=== PATIENT | male | born 1960 | race Caucasian/White ===

== ENCOUNTER 2018-03-08 10:49 | Outpatient (CLI) | payer OTHER ==
[2018-03-08 17:40] LABS: BASOPHILS # (AUTO) 0.1 10^3/uL (0.0-0.1); BASOPHILS % (AUTO) 1.4 %; EOSINOPHILS # (AUTO) 0.4 10^3/uL (0.0-0.7); HGB - HEMOGLOBIN 15.9 g/dL (14.0-18.0); LYMPHOCYTES # (AUTO) 1.2 10^3/uL (1.5-3.5); LYMPHOCYTES % (AUTO) 15.3 %; MEAN CORPUSCULAR HEMOGLOBIN 30.1 pg (27.0-31.0); MEAN CORPUSCULAR HGB CONC 33.6 g/dL (32.0-36.0); MEAN CORPUSCULAR VOLUME 89.5 fL (80.0-94.0); MONOCYTES # (AUTO) 0.6 10^3/uL (0.0-1.0); MONOCYTES % (AUTO) 7.1 %; NEUTROPHILS # (AUTO) 5.6 10^3/uL (1.5-6.6); NEUTROPHILS % (AUTO) 71.2 %; PLT - PLATELET COUNT 220 10^3/uL (130-450); RED BLOOD COUNT 5.28 10^6/uL (4.70-6.10); RED CELL DISTRIBUTION WIDTH 13.2 % (12.0-15.0); WHITE BLOOD COUNT 7.9 x10^3/uL (4.8-10.8)
[2018-03-08 17:42] LABS: ALBUMIN 4.1 g/dL (3.2-5.5); ALBUMIN/GLOBULIN RATIO 1.3 (1.0-2.2); ALKALINE PHOSPHATASE 71 IU/L (42-121); ALT ALANINE AMINOTRANSFERASE 32 IU/L (10-60); AST ASPARTATE AMINOTRANSFERASE 25 IU/L (10-42); BILIRUBIN,TOTAL 0.6 mg/dL (0.2-1.0); BUN - BLOOD UREA NITROGEN 23 mg/dL (6-20); CALCIUM 9.1 mg/dL (8.5-10.3); CARBON DIOXIDE - CO2 26 mmol/L (21-32); CHLORIDE 107 mmol/L (101-111); CHOLESTEROL 223 mg/dL; GFR - MDRD 77 (>89); GLUCOSE 104 mg/dL (70-100); HDL CHOLESTEROL 37 mg/dL; LDL CHOLESTEROL,CALCULATED 137 mg/dL; LDL/HDL RATIO 3.7 (<3.6); SODIUM 139 mmol/L (135-145); TOTAL PROTEIN 7.3 g/dL (6.7-8.2); VLDL CHOLESTEROL 49 mg/dL
[2018-03-11 15:21] LABS: HIV AG/AB 4TH GEN NON-REACTIVE (NON-REACTIVE)
[2018-03-12 17:26] LABS: HEPATITIS C ANTIBODY NON-REACTIVE (NON-REACTIVE)
== END 2018-03-08 10:50 | disposition home or self-care (01) ==
LOC: LAB.F 10:49
PROVIDERS: ATTEND Internal Medicine
DX: Z00.00 Encounter for general adult medical examination without abnormal findings (principal); Z11.59 Encounter for screening for other viral diseases; I10 Essential (primary) hypertension; Z11.4 Encounter for screening for human immunodeficiency virus [HIV]
CPT/HCPCS: 36415; 80053; 80061; 83721; 84443; 85025; 86803; 87389

== ENCOUNTER 2019-07-18 09:02 | Outpatient (CLI) | payer OTHER ==
[2019-07-18 18:57] LABS: BASOPHILS # (AUTO) 0.1 10^3/uL (0.0-0.1); BASOPHILS % (AUTO) 1.9 %; EOSINOPHILS # (AUTO) 0.5 10^3/uL (0.0-0.7); EOSINOPHILS % (AUTO) 7.7 %; HGB - HEMOGLOBIN 15.2 g/dL (14.0-18.0); LYMPHOCYTES # (AUTO) 1.4 10^3/uL (1.5-3.5); LYMPHOCYTES % (AUTO) 23.6 %; MEAN CORPUSCULAR HEMOGLOBIN 29.8 pg (27.0-31.0); MEAN CORPUSCULAR HGB CONC 33.1 g/dL (32.0-36.0); MEAN PLATELET VOLUME 10.7 fL (7.4-11.4); MONOCYTES # (AUTO) 0.5 10^3/uL (0.0-1.0); MONOCYTES % (AUTO) 7.7 %; NEUTROPHILS # (AUTO) 3.4 10^3/uL (1.5-6.6); NEUTROPHILS % (AUTO) 58.8 %; PLT - PLATELET COUNT 266 10^3/uL (130-450); RED CELL DISTRIBUTION WIDTH 12.6 % (12.0-15.0); WHITE BLOOD COUNT 5.9 x10^3/uL (4.8-10.8)
[2019-07-18 19:42] LABS: ALBUMIN/GLOBULIN RATIO 1.3 (1.0-2.2); ALKALINE PHOSPHATASE 69 IU/L (42-121); ALT ALANINE AMINOTRANSFERASE 33 IU/L (10-60); AST ASPARTATE AMINOTRANSFERASE 28 IU/L (10-42); BILIRUBIN,TOTAL 0.6 mg/dL (0.2-1.0); BUN - BLOOD UREA NITROGEN 23 mg/dL (6-20); CALCIUM 8.7 mg/dL (8.5-10.3); CARBON DIOXIDE - CO2 25 mmol/L (21-32); CHLORIDE 110 mmol/L (101-111); CHOL/HDL RATIO 6.5 (<5.0); CHOLESTEROL 229 mg/dL; CREATININE 1.2 mg/dL (0.6-1.2); GFR - MDRD 62 (>89); GLUCOSE 99 mg/dL (70-100); HDL CHOLESTEROL 35 mg/dL; LDL CHOLESTEROL,CALCULATED 167 mg/dL; LDL/HDL RATIO 4.8 (<3.6); SODIUM 140 mmol/L (135-145); TOTAL PROTEIN 7.1 g/dL (6.7-8.2); VLDL CHOLESTEROL 27 mg/dL
== END 2019-07-18 09:03 | disposition home or self-care (01) ==
LOC: LAB.S 09:02
PROVIDERS: ATTEND Physician Assistant Medical
DX: I10 Essential (primary) hypertension (principal); E78.5 Hyperlipidemia, unspecified
CPT/HCPCS: 36415; 80053; 80061; 83721; 85025

== ENCOUNTER 2021-02-25 07:02 | Outpatient (CLI) | payer OTHER ==
[2021-02-25 14:44] LABS: BASOPHILS # (AUTO) 0.1 10^3/uL (0.0-0.1); BASOPHILS % (AUTO) 1.4 %; EOSINOPHILS # (AUTO) 0.5 10^3/uL (0.0-0.7); EOSINOPHILS % (AUTO) 5.9 %; HCT - HEMATOCRIT 47.5 % (42.0-52.0); HGB - HEMOGLOBIN 15.6 g/dL (14.0-18.0); LYMPHOCYTES # (AUTO) 1.8 10^3/uL (1.5-3.5); LYMPHOCYTES % (AUTO) 22.1 %; MEAN CORPUSCULAR HEMOGLOBIN 29.5 pg (27.0-31.0); MEAN CORPUSCULAR HGB CONC 32.8 g/dL (32.0-36.0); MEAN PLATELET VOLUME 10.5 fL (7.4-11.4); MONOCYTES # (AUTO) 0.7 10^3/uL (0.0-1.0); MONOCYTES % (AUTO) 8.8 %; NEUTROPHILS # (AUTO) 4.9 10^3/uL (1.5-6.6); NEUTROPHILS % (AUTO) 61.5 %; PLT - PLATELET COUNT 269 10^3/uL (130-450); RED BLOOD COUNT 5.28 10^6/uL (4.70-6.10); RED CELL DISTRIBUTION WIDTH 12.6 % (12.0-15.0)
[2021-02-25 15:17] LABS: ALBUMIN 4.2 g/dL (3.2-5.5); ALBUMIN/GLOBULIN RATIO 1.4 (1.0-2.2); ALKALINE PHOSPHATASE 68 IU/L (42-121); ALT ALANINE AMINOTRANSFERASE 37 IU/L (10-60); AST ASPARTATE AMINOTRANSFERASE 26 IU/L (10-42); BILIRUBIN,TOTAL 0.7 mg/dL (0.2-1.0); BUN - BLOOD UREA NITROGEN 21 mg/dL (6-20); CALCIUM 9.1 mg/dL (8.5-10.3); CARBON DIOXIDE - CO2 23 mmol/L (21-32); CHLORIDE 107 mmol/L (101-111); CHOLESTEROL 161 mg/dL; CREATININE 1.3 mg/dL (0.6-1.2); GFR - MDRD 56 (>89); GLUCOSE 102 mg/dL (70-100); HDL CHOLESTEROL 32 mg/dL; LDL CHOLESTEROL,CALCULATED 80 mg/dL; LDL/HDL RATIO 2.5 (<3.6); POTASSIUM 4.2 mmol/L (3.5-5.0); SODIUM 141 mmol/L (135-145); TOTAL PROTEIN 7.1 g/dL (6.7-8.2); TRIGLYCERIDES 243 mg/dL; VLDL CHOLESTEROL 49 mg/dL
[2021-02-25 15:29] LABS: THYROID STIMULATING HORMONE 1.03 uIU/mL (0.34-5.60)
== END 2021-02-25 07:03 | disposition home or self-care (01) ==
LOC: LAB.S 07:02
PROVIDERS: ATTEND Physician Assistant
DX: I10 Essential (primary) hypertension (principal); R00.2 Palpitations; Z82.49 Family history of ischemic heart disease and other diseases of the circulatory system; J30.2 Other seasonal allergic rhinitis; E78.5 Hyperlipidemia, unspecified; D86.9 Sarcoidosis, unspecified
CPT/HCPCS: 36415; 80053; 80061; 83721; 84153; 84443; 85025

== ENCOUNTER 2022-12-01 08:07 | Outpatient (CLI) | payer OTHER ==
[2022-12-01 14:40] LABS: BASOPHILS # (AUTO) 0.1 10^3/uL (0.0-0.1); BASOPHILS % (AUTO) 1.7 %; EOSINOPHILS # (AUTO) 0.5 10^3/uL (0.0-0.7); EOSINOPHILS % (AUTO) 8.4 %; HCT - HEMATOCRIT 49.6 % (42.0-52.0); HGB - HEMOGLOBIN 15.7 g/dL (14.0-18.0); LYMPHOCYTES # (AUTO) 1.7 10^3/uL (1.5-3.5); LYMPHOCYTES % (AUTO) 28.3 %; MEAN CORPUSCULAR HEMOGLOBIN 29.1 pg (27.0-31.0); MEAN CORPUSCULAR HGB CONC 31.7 g/dL (32.0-36.0); MEAN CORPUSCULAR VOLUME 91.9 fL (80.0-94.0); MEAN PLATELET VOLUME 10.1 fL (7.4-11.4); MONOCYTES # (AUTO) 0.6 10^3/uL (0.0-1.0); MONOCYTES % (AUTO) 9.6 %; NEUTROPHILS # (AUTO) 3.1 10^3/uL (1.5-6.6); NEUTROPHILS % (AUTO) 51.7 %; PLT - PLATELET COUNT 260 10^3/uL (130-450); WHITE BLOOD COUNT 5.9 x10^3/uL (4.8-10.8)
[2022-12-01 15:37] LABS: ALBUMIN 3.9 g/dL (3.2-5.5); ALBUMIN/GLOBULIN RATIO 1.2 (1.0-2.2); ALKALINE PHOSPHATASE 54 IU/L (42-121); ALT ALANINE AMINOTRANSFERASE 29 IU/L (10-60); AST ASPARTATE AMINOTRANSFERASE 25 IU/L (10-42); BILIRUBIN,TOTAL 0.6 mg/dL (0.2-1.0); BUN - BLOOD UREA NITROGEN 29 mg/dL (6-20); CALCIUM 8.9 mg/dL (8.5-10.3); CARBON DIOXIDE - CO2 27 mmol/L (21-32); CHLORIDE 106 mmol/L (101-111); CHOL/HDL RATIO 7.9 (<5.0); CHOLESTEROL 260 mg/dL; CREATININE 1.5 mg/dL (0.6-1.2); GFR - MDRD 47 (>89); GLUCOSE 103 mg/dL (70-100); HDL CHOLESTEROL 33 mg/dL; LDL CHOLESTEROL,CALCULATED 181 mg/dL; LDL/HDL RATIO 5.5 (<3.6); POTASSIUM 4.3 mmol/L (3.5-5.0); SODIUM 138 mmol/L (135-145); TOTAL PROTEIN 7.2 g/dL (6.7-8.2); TRIGLYCERIDES 228 mg/dL; VLDL CHOLESTEROL 46 mg/dL
[2022-12-02 12:29] LABS: ESTIMATED AVERAGE GLUCOSE 120 mg/dL (70-100); HEMOGLOBIN A1c% 5.8 % (4.27-6.07)
[2022-12-12 22:07] LABS: 1,25-DIHYDROXY VITAMIN D-2 <10 pg/mL (.); 1,25-DIHYDROXY VITAMIN D-3 31 pg/mL (.); TOTAL 1,25-DIHYDROXYVITAMIN D 31 pg/mL (.)
== END 2022-12-01 08:08 | disposition home or self-care (01) ==
LOC: LAB.S 08:07
PROVIDERS: ATTEND Nurse Practitioner Acute Care
DX: D86.9 Sarcoidosis, unspecified (principal); Z13.228 Encounter for screening for other metabolic disorders; Z13.1 Encounter for screening for diabetes mellitus; Z13.29 Encounter for screening for other suspected endocrine disorder; Z13.0 Encounter for screening for diseases of the blood and blood-forming organs and certain disorders involving the immune mechanism
CPT/HCPCS: 36415; 80053; 80061; 82306; 82652; 83036; 83721; 84443; 85025

== ENCOUNTER 2022-12-18 10:27 | Outpatient (CLI) | payer OTHER ==
--- NOTE | 2022-12-18 11:14 | XRAY Report ---
PROCEDURE: Foot 3 View LT INDICATIONS: LEFT HEEL PAIN TECHNIQUE: 3 views of the foot were acquired. COMPARISON: None. FINDINGS: Bones: No fractures or dislocations. No suspicious bony lesions. Retrocalcaneal enthesophyte note d. Soft tissues: No suspicious soft tissue calcifications or masses. IMPRESSION: Left foot without acute fracture or dislocation. Retrocalcaneal enthesophyte. If there is continued clinical concern for pathology or occult fracture, consider follow-up imaging w ith repeat radiographs versus possible advanced imaging (CT, MRI, bone scan) if symptoms persist. Reviewed by: Rick Pratt MD on 12/18/2022 11:13 AM PDT Approved by: Rick Pratt MD on 12/18/2022 11:13 AM PDT Station ID: [id number]
== END 2022-12-18 10:28 | disposition home or self-care (01) ==
LOC: DI 10:27
PROVIDERS: ATTEND Podiatrist
DX: M77.32 Calcaneal spur, left foot (principal)

== ENCOUNTER 2023-01-12 07:00 | Outpatient (CLI) | payer OTHER ==
[2023-01-12 15:11] LABS: BILIRUBIN,URINE NEGATIVE (NEGATIVE); GLUCOSE, URINE (UA) NEGATIVE (NEGATIVE); KETONES,URINE (UA) NEGATIVE (NEGATIVE); LEUKOCYTE ESTERASE, URINE NEGATIVE (NEGATIVE); NITRITE,URINE NEGATIVE (NEGATIVE); OCCULT BLOOD,URINE NEGATIVE (NEGATIVE); PROTEIN,URINE 30 mg/dL (NEGATIVE); UROBILINOGEN,URINE 0.2 (NORMAL) E.U./dL (NORMAL)
[2023-01-12 15:28] LABS: CLARITY,URINE CLOUDY (CLEAR)
[2023-01-12 15:29] LABS: AMORPHOUS SEDIMENT,UR Marked /LPF; BACTERIA,URINE None Seen /HPF (None Seen); RBC,URINE None Seen /HPF (0-5); SQUAMOUS EPITHELIAL CELL,UR NONE SEEN (<= Few); WBC,URINE 0-3 /HPF (0-3)
== END 2023-01-12 23:59 | disposition home or self-care (01) ==
LOC: LAB.S 07:00
PROVIDERS: ATTEND Emergency Medicine
DX: N43.40 Spermatocele of epididymis, unspecified (principal)
CPT/HCPCS: 81001; 81003

== ENCOUNTER 2023-01-16 21:51 | Outpatient (CLI) | payer OTHER ==
--- NOTE | 2023-01-17 10:42 | Ultrasound Report ---
PROCEDURE: Testicle INDICATIONS: LEFT SPERMATOCELE TECHNIQUE: Real-time scanning was performed of the scrotum and testicles, with image documentation. Color and p ulse Doppler interrogation was performed of both testicles. COMPARISON: None. FINDINGS: Right: Testicle is normal in size at 3.9 x 2.6 x 2.9 cm, and homogenous in echotexture. Epididymis is normal in overall size and morphology. Small hydrocele without varicocele. Overlying scrotal skin is normal in thickness. Left: Testicle is normal in size at 4.6 x 2.2 x 2.5 cm, and homogeneous in echotexture. Epididymis is normal in overall size and morphology. In the tail of the epididymis, there is a vascular lesion m easuring 1.2 cm. Small hydrocele without varicocele. Overlying scrotal skin is normal in thickness. Scrotal peter is present. Doppler: Color and pulse Doppler demonstrate normal and symmetric arterial flow in both testicles. IMPRESSION: Vascular lesion in the tail the epididymis measuring 1.2 cm. Location favors a benign entity but foll ow-up in 6 months should be considered. Findings would be atypical for spermatocele. Small bilateral hydroceles. Reviewed by: Jose Palomares on 01/17/2023 10:41 AM PDT Approved by: Jose Palomares on 01/17/2023 10:41 AM PDT Station ID: [id number]
== END 2023-01-16 21:52 | disposition home or self-care (01) ==
LOC: DI 21:51
PROVIDERS: ATTEND Emergency Medicine
DX: N43.40 Spermatocele of epididymis, unspecified (principal); N43.3 Hydrocele, unspecified

== ENCOUNTER 2023-09-13 07:08 | Outpatient (CLI) | payer OTHER ==
[2023-09-13 15:09] LABS: BUN - BLOOD UREA NITROGEN 24 mg/dL (6-20); CALCIUM 9.3 mg/dL (8.5-10.3); CARBON DIOXIDE - CO2 28 mmol/L (21-32); CHLORIDE 105 mmol/L (101-111); CHOL/HDL RATIO 7.4 (<5.0); CHOLESTEROL 243 mg/dL; CREATININE 1.4 mg/dL (0.6-1.3); GFR - MDRD 51 (>89); GLUCOSE 86 mg/dL (74-104); HDL CHOLESTEROL 33 mg/dL; LDL CHOLESTEROL,CALCULATED 150 mg/dL; LDL/HDL RATIO 4.5 (<3.6); POTASSIUM 4.4 mmol/L (3.5-4.5); SODIUM 138 mmol/L (135-145); TRIGLYCERIDES 298 mg/dL (48-352); VLDL CHOLESTEROL 60 mg/dL
== END 2023-09-13 07:09 | disposition home or self-care (01) ==
LOC: LAB.S 07:08
PROVIDERS: ATTEND Nurse Practitioner Acute Care
DX: Z51.81 Encounter for therapeutic drug level monitoring (principal); Z79.899 Other long term (current) drug therapy
CPT/HCPCS: 36415; 80048; 80061; 83721

== ENCOUNTER 2023-09-13 08:31 | Emergency (ER) | payer OTHER ==
[2023-09-13 10:41] LABS: BASOPHILS # (AUTO) 0.1 10^3/uL (0.0-0.1); BASOPHILS % (AUTO) 1.8 %; EOSINOPHILS # (AUTO) 0.4 10^3/uL (0.0-0.7); EOSINOPHILS % (AUTO) 6.6 %; HGB - HEMOGLOBIN 15.4 g/dL (14.0-18.0); LYMPHOCYTES # (AUTO) 1.4 10^3/uL (1.5-3.5); LYMPHOCYTES % (AUTO) 20.9 %; MEAN CORPUSCULAR HEMOGLOBIN 29.2 pg (27.0-31.0); MEAN CORPUSCULAR HGB CONC 32.8 g/dL (32.0-36.0); MEAN PLATELET VOLUME 10.2 fL (7.4-11.4); MONOCYTES # (AUTO) 0.5 10^3/uL (0.0-1.0); MONOCYTES % (AUTO) 8.1 %; NEUTROPHILS # (AUTO) 4.1 10^3/uL (1.5-6.6); NEUTROPHILS % (AUTO) 62.1 %; PLT - PLATELET COUNT 253 10^3/uL (130-450); RED BLOOD COUNT 5.28 10^6/uL (4.70-6.10); RED CELL DISTRIBUTION WIDTH 12.9 % (12.0-15.0); WHITE BLOOD COUNT 6.5 x10^3/uL (4.8-10.8)
--- NOTE | 2023-09-13 10:51 | ED Physician Documentation ---
PD HPI FOCAL NEURO - Stated complaint Stated Complaint: CANT SEE LT EYE - Chief complaint Chief Complaint: General - History obtained from History obtained from: Patient - History of Present Illness Timing - onset: How many days ago (5) Timing - duration: Days (5) Timing - details: Abrupt onset, Now resolved Severity of deficit: Moderate Weakness: Other (left eye vision loss 5 days ago for several minutes. At rest, noted onset of loss of vision left eye, about 1/2-2/3 of vision from top down, as if window curtain was pulled down. It improved over minutes but left with blurry vision same area. No defect in right eye. Went to [facility] 2 days ago.). No: Face, Arm, Leg Numbness: No: Face, Arm, Leg Associated symptoms: No: Headache, Nausea / vomiting Contributing factors: negative: Anticoagulated, Atrial fibrillation Baseline status: positive: A&OX3, ambulatory, indep Similar symptoms before: No: Has not had sx before Recently seen: Clinic (went to [facility] 2 days ago and had eye exam with Dx of vascular process to left eye that is improved and should resolve completely with time, per patient. Went to PCP today for getting choleserol checked. Told nurse and was seen by PCP, and referred to ER.) Review of Systems Constitutional: denies: Fever, Chills Ears: denies: Loss of hearing Nose: denies: Rhinorrhea / runny nose, Congestion Throat: denies: Sore throat Respiratory: denies: Cough PD PAST MEDICAL HISTORY - Past Medical History Cardiovascular: Hypertension Respiratory: None Endocrine/Autoimmune: None GI: None : None HEENT: None Psych: None Musculoskeletal: None Derm: None Other Past Medical History: Sarcoidosis - Past Surgical History Ortho: Other - Present Medications Home Medications: Ambulatory Orders Medication Instructions Recorded Confirmed Aspirin [[place] Aspirin] 1 tab PO DAILY 09/13/23 09/13/23 Clopidogrel [Plavix] 75 mg PO DAILY #28 tablet 09/13/23 Losartan [Cozaar] 100 mg PO DAILY 09/13/23 09/13/23 hydroCHLOROthiazide [Hydrodiuril] 25 mg PO DAILY #30 tablet 09/13/23 - Allergies Allergies/Adverse Reactions: Allergies Allergy/AdvReac Type Severity Reaction Status Date / Time grass pollen-perennial rye, Allergy Mild Unknown Verified 02/10/14 12:01 standar [grass poll-perennial rye,std] Penicillins Allergy Unknown Verified 02/06/14 15:02 - Social History Does the pt smoke?: No Smoking Status: Never smoker PD ED PE NORMAL - Vitals Vital signs reviewed: Yes - General General: Alert and oriented X 3, No acute distress, Well developed/nourished - HEENT HEENT: PERRL, EOMI, Other (fundus appears normal. ) - Neck Neck: Supple, no meningeal sign, No adenopathy, No bruit - Cardiac Cardiac: RRR, No murmur - Respiratory Respiratory: Clear bilaterally - Neuro Neuro: Alert and oriented X 3, No motor deficit, Normal speech NIHSS - Level of Consciousness Level of consciousness: (0) Alert, Keenly responsive LOC Questions: (0) Answers both Q's correct LOC Commands: (0) Performs both correctly - Gaze Best Gaze: (0) Normal - Visual Visual: (0) No loss - Facial Palsy Facial Palsy: (0) Normal, symmetrical movement - Motor Arms (both separate) Motor Arm (right): (0) No drift Motor Arm (left): (0) No drift - Motor Legs (both separate) Motor Leg (right): (0) No drift Motor Leg (left): (0) No drift - Limb Ataxia Limb Ataxia: (0) Absent - Sensory Sensory: (0) Normal - Best Language Best Language: (0) No aphasia - Dysarthria Dysarthria: (0) Normal - Extinction and Inattention (formally neg Extinction and inattention: (0) No abnormality - Total Score/Results Total Score/Result: 0 Results - Vitals Vitals: Vital Signs - 24 hr 09/13/23 09/13/23 09/13/23 08:40 11:07 11:58 Temperature 36.0 C L 36.5 C Heart Rate 53 L 55 L 50 L Respiratory 18 15 Rate Blood Pressure 168/80 H 157/101 H O2 Saturation 99 98 09/13/23 09/13/23 13:21 14:58 Temperature Heart Rate 54 L 55 L Respiratory 18 14 Rate Blood Pressure 148/90 H 160/87 H O2 Saturation 97 98 Oxygen O2 Source Room air - Labs Labs: Laboratory Tests 09/13/23 09/13/23 09/13/23 10:36 10:36 10:36 WBC 6.5 RBC 5.28 Hgb 15.4 Hct 47.0 MCV 89.0 MCH 29.2 MCHC 32.8 RDW 12.9 Plt Count 253 MPV 10.2 Neut # (Auto) 4.1 Lymph # (Auto) 1.4 L Desha # (Auto) 0.5 Eos # (Auto) 0.4 Baso # (Auto) 0.1 Absolute Nucleated RBC 0.00 Nucleated RBC % 0.0 ESR 2 Sodium 137 Potassium 4.8 H Chloride 105 Carbon Dioxide 28 Anion Gap 4.0 L BUN 23 H Creatinine 1.3 Estimated GFR (MDRD) 56 L Glucose 89 Calcium 9.5 Total Bilirubin 0.6 AST 20 ALT 25 Alkaline Phosphatase 53 Total Protein 7.0 Albumin 4.5 Globulin 2.5 Albumin/Globulin Ratio 1.8 Lipase 68 - Rads (name of study) angio head/neck Relevant Findings:: Prelim report reviewed (no notable stenoses. At carotid bifurcation, there is some soft plaque. No stenoses and no figueroa of nonperfusion on CT.), EMP independent interpretation of test PD Medical Decision Making - ED course Complexity details: considered differential (symptoms likely were vascular to left eye, according to pt's conveyance of Opthalmologist Dx. No follow up or testing indicated by Eye. ), d/w patient Reviewed Lab Results: referred to ED by PCP for possible further testing. In short term, if it had been local effect vascular such as retinal artery occlusion, or if were embolic from carotids. Could be concerned about LVO/stenosis. He is in NSR so not likely embolic from heart. Had CTA head ancd neck without any notable stenosis. Has some soft plaque at carotid bifurcation. Would want to start pt on duel antiplately therapy, in time to have less chance for further injury/problem. Departure - Departure Disposition: 01 Home, Self Care Clinical Impression: Amaurosis fugax of left eye, Hypertension Condition: Stable Record reviewed to determine appropriate education?: Yes Instructions: ED Transient Ischemic Attack Follow-Up: [facility] [place] [Provider Group] Prescriptions: hydroCHLOROthiazide [Hydrodiuril] 25 mg PO DAILY #30 tablet Clopidogrel [Plavix] 75 mg PO DAILY #28 tablet Comments: Your CT showed some soft plaque at the bifurcation of the carotid. There was no significant stenosis/tightness. At this point would presume he had a small clot form or break off from the plaque that caused your symptoms of your eye. The main focus is to prevent further clots from happening and slow progression of any further plaque. This would be a combination of short-term antiplatelet agents of a baby aspirin a day as well as clopidogrel/Plavix daily for 4 weeks. You would want to continue the baby aspirin indefinitely. Continue with your current blood pressure medicine. Add hydrochlorothiazide daily. Follow-up with your primary care on the as scheduled for reevaluation of the blood pressure and also discussion about cholesterol management. Stay well-hydrated. [facility] in [place]. Forms: PCP List Discharge Date/Time: 09/13/23 14:59
[2023-09-13 10:59] LABS: ALBUMIN 4.5 g/dL (3.2-5.5); ALBUMIN/GLOBULIN RATIO 1.8 (1.0-2.2); BILIRUBIN,TOTAL 0.6 mg/dL (0.2-1.0); CALCIUM 9.5 mg/dL (8.5-10.3); CREATININE 1.3 mg/dL (0.6-1.3); POTASSIUM 4.8 mmol/L (3.5-4.5)
[2023-09-13] MEDS ORDERED: iohexoL-300 100 ML VIAL IVP ONE (12:43)
--- NOTE | 2023-09-13 14:23 | CT Report ---
PROCEDURE: CT Angio Head/Neck INDICATIONS: left eye vision loss 5 d ago, for hour TECHNIQUE: Pre-contrast 4.5 mm thick sections acquired from the foramen magnum to the vertex. After the adminis tration of intravenous contrast, 1 mm thick sections acquired from the aortic arch through the [place]. Post-contrast 4.5 mm thick sections then re-acquired from the foramen magnum to the vert ex. 3-dimensional gyzzaur-bddfzfykn-fxfsotzefi (MIP) and/or volume rendering reformats were acquired of the central intracranial vasculature and neck separately. For radiation dose reduction, the foll owing was used: automated exposure control, adjustment of mA and/or kV according to patient size. CONTRAST: See chart COMPARISON: None FINDINGS: Image quality: Excellent. BRAIN: CSF spaces: Ventricles are normal in size and shape. Basal cisterns are patent. No extra-axial flu id collections. Brain: No midline shift. No intracranial bleeds or masses. Banks-white matter interface appears diego ssly intact, allowing for the limitations of the study. Skull and face: Calvarium and facial bones appear intact, without suspicious lesions. Orbits appear normal. Sinuses: Sinuses and mastoids are clear. HEAD CT ANGIOGRAPHY: Anterior circulation: Intracranial internal carotid arteries are normal in size and flow. The flow within the paired anterior cerebral arteries is normal and symmetric. The flow within the middle cer ebral arteries is normal and symmetric. The anterior communicating artery is seen. No aneurysms are seen. Posterior circulation: Visualized portions of the vertebral arteries demonstrate normal caliber, and join to form a normal appearing basilar artery. Flow within the posterior cerebral arteries is norm al and symmetric. No aneurysms are seen. NECK CT ANGIOGRAPHY: Carotid system: The great vessels demonstrate a conventional anatomy as they arise from the aortic a [facility]. The origins of the common carotid arteries appear patent. The common carotid arteries demonstr ate normal caliber and courses. The bifurcation regions are both widely patent. There is moderate so ft plaque involving the left carotid bifurcation extending minimally into the internal carotid. There is moderate soft plaque in the proximal left external carotid artery. There is only very mild left i nternal carotid artery stenosis using NASCET criteria. The right internal carotid artery is widely pa tent. Posterior circulation: The origins of the vertebral arteries both appear widely patent. The more wells perior extracranial portions of both vertebral arteries also demonstrate normal courses and calibers. They join to form a normal appearing basilar artery. Soft tissues: Visualized neck soft tissues demonstrate no suspicious abnormalities. Bones: No suspicious bony lesions. Visualized cervical spine appears normally aligned. IMPRESSION: 1. Unremarkable CTA head. No stenosis, aneurysm, occlusion, or focal filling defect. 2. There is moderate soft plaque in the left carotid bifurcation without stenosis. The soft plaque ex tends minimally into the left internal carotid artery. There is no significant stenosis by NASCET cri teria. Comment: This study is not tailored for close evaluation of the brain. Additionally, routine noncontr ast head CT is suboptimal for identifying small infarcts. Consider brain MRI The estimate of stenosis included in the report of the imaging study was calculated using the NASCET method Reviewed by: Alexandre Hernandez MD on 09/13/2023 2:22 PM PST Approved by: Alexandre Hernandez MD on 09/13/2023 2:22 PM PST Station ID: [id number]
[2023-09-13] MEDS ORDERED: CLOPIDOGREL 300 MG TABLET PO STA (14:45)
[2023-09-13 15:04] VITALS: BP 160/87; O2SAT 98
== END 2023-09-13 14:59 | disposition home or self-care (01) ==
LOC: ED 08:31
DX: G45.3 Amaurosis fugax (principal); I10 Essential (primary) hypertension; Z51.81 Encounter for therapeutic drug level monitoring; Z79.899 Other long term (current) drug therapy
CPT/HCPCS: 36415; 70496; 70498; 80048; 80053; 80061; 83690; 85025; 85651; 99284; A9270; Q9967; 83721

== ENCOUNTER 2023-09-14 15:51 | Outpatient (CLI) | payer OTHER ==
[~2023-09-14 15:51] MED LIST: GADOTERATE MEGLUMINE 10 MMOL/20 ML VIAL ONE
[2023-09-14] MEDS ORDERED: GADOTERATE MEGLUMINE 10 MMOL/20 ML VIAL IVP ONE (17:45)
--- NOTE | 2023-09-14 18:07 | Ultrasound Report ---
PROCEDURE: Carotid Doppler Complete INDICATIONS: LEFT RETINAL ARTERY BRANCH OCCLUSION TECHNIQUE: Color and pulse Doppler interrogation was performed of both carotid systems, with image documentation and velocity measurements. COMPARISON: CTA head and neck on September 13, 2023. FINDINGS: Right side: Brachial blood pressure: 120 mm Hg. Common carotid artery peak systolic velocity: 108 cm/sec. Internal carotid artery peak systolic velocity: 97 cm/sec. Internal carotid artery end diastolic velocity: 29 cm/sec. External carotid artery peak systolic velocity: 136 cm/sec. ICA/CCA peak systolic ratio: 0.8 . Bnaks scale imaging description: Mild atherosclerotic plaque. Percent internal carotid artery stenosis: Less than 50 percent stenosis. Vertebral artery: Flow direction is antegrade. Left side: Brachial blood pressure: 142 mm Hg. Common carotid artery peak systolic velocity: 113 cm/sec. Internal carotid artery peak systolic velocity: 137 cm/sec. Internal carotid artery end diastolic velocity: 37 cm/sec. External carotid artery peak systolic velocity: 288 cm/sec. ICA/CCA peak systolic ratio: 1.2 . Banks scale imaging description: Moderate atherosclerotic plaque. Percent internal carotid artery stenosis: Less than 50 percent stenosis. Vertebral artery: Flow direction is antegrade. IMPRESSION: 1. In the right internal carotid artery, there is less than 50 percent stenosis based on peak systoli c velocity criteria. 2. In the left internal carotid artery, there is less than 50 percent stenosis based on peak systolic velocity criteria. In the left external carotid artery, there is a peak systolic velocity of 288 cm/ S suggestive of stenosis. 3. Antegrade blood flow within the right vertebral artery. 4. Antegrade blood flow within the left vertebral artery. The estimate of stenosis included in the report of the imaging study was calculated using the [facility]-end orsed standards of carotid artery stenosis. Reviewed by: Hamida Cardoza MD on 09/14/2023 6:06 PM PST Approved by: Hamida Cardoza MD on 09/14/2023 6:06 PM PST Station ID: [id number]
--- NOTE | 2023-09-14 18:28 | MRI Report ---
PROCEDURE: BRAIN W/WO INDICATIONS: LEFT RETINAL ARTERY BRANCH OCCLUSION CONTRAST: CLARISCAN 20 ML TECHNIQUE: Noncontrast axial T1 spin echo, axial T2 fast spin echo, sagittal and axial FLAIR, coronal T2 fast sp in echo, axial gradient echo, axial diffusion and ADC through the brain. After the administration of contrast, axial and coronal T1 spin echo with fat saturation through the brain. COMPARISON: None. FINDINGS: Image quality: Excellent. CSF spaces: Basal cisterns are patent. No extra-axial fluid collections. Ventricles are normal in size and shape. Brain: There is a mass seen within the sella turcica that measures 2.2 x 1.5 cm in greatest axial di mension, with a crown coronal extent of 1.6 cm. There is mild mass effect seen upon the optic chiasm. No brain parenchymal masses can be seen. No additional foci of abnormal enhancement can be seen. No midline shift. No intracranial bleeds. There is cerebral volume loss for age. There is perivent ricular white matter chronic small vessel ischemic change. The brainstem appears normal. Diffusion- weighted images demonstrate no acute ischemic insults. No chronic ischemic insults. Normal intravas cular flow voids are present. Skull and face: Calvarial marrow is normal in signal. Orbits appear normal. Sinuses: Sinuses and mastoids appear clear. 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 Associated mild mass effect can be seen upon the optic chiasm. Neurosurgical consultation is recommended. If clinically appropriate, a follow-up pituitary protocol MRI (without and with contrast) could be c onsidered for further evaluation. Reviewed by: Alex Beverly MD on 09/14/2023 5:27 PM [facility] Approved by: Alex Beverly MD on 09/14/2023 5:27 PM [facility] Station ID: [id number]
== END 2023-09-14 15:52 | disposition home or self-care (01) ==
LOC: DI 15:51
PROVIDERS: ATTEND Nurse Practitioner Acute Care
DX: E23.7 Disorder of pituitary gland, unspecified (principal); I65.23 Occlusion and stenosis of bilateral carotid arteries
CPT/HCPCS: 70553; 93880; A9575

== ENCOUNTER 2023-09-27 07:08 | Outpatient (CLI) | payer OTHER ==
[2023-09-27 15:18] LABS: CALCIUM 9.8 mg/dL (8.5-10.3); CREATININE 1.6 mg/dL (0.6-1.3); POTASSIUM 4.2 mmol/L (3.5-4.5)
[2023-09-27 15:33] LABS: THYROID STIMULATING HORMONE 1.31 uIU/mL (0.34-5.60)
[2023-09-27 15:35] LABS: PROLACTIN 16.87 ng/mL
== END 2023-09-27 07:09 | disposition home or self-care (01) ==
LOC: LAB.S 07:08
PROVIDERS: ATTEND Neurological Surgery
DX: E23.6 Other disorders of pituitary gland (principal); H53.9 Unspecified visual disturbance
CPT/HCPCS: 36415; 80048; 82024; 82533; 83001; 83002; 84146; 84305; 84403; 84439; 84443

== ENCOUNTER 2024-01-30 07:42 | Outpatient (CLI) | payer OTHER ==
[2024-01-30 16:11] LABS: THYROID STIMULATING HORMONE 1.14 uIU/mL (0.34-5.60)
[2024-01-30 16:19] LABS: PROLACTIN 14.75 ng/mL
[2024-01-30 17:09] LABS: ALBUMIN 4.2 g/dL (3.2-5.5); ALBUMIN/GLOBULIN RATIO 1.5 (1.0-2.2); BILIRUBIN,TOTAL 0.4 mg/dL (0.2-1.0); CALCIUM 9.7 mg/dL (8.5-10.3); CREATININE 1.5 mg/dL (0.6-1.3); POTASSIUM 4.5 mmol/L (3.5-4.5)
== END 2024-01-30 07:43 | disposition home or self-care (01) ==
LOC: LAB.S 07:42
PROVIDERS: ATTEND Internal Medicine Endocrinology, Diabetes & Metabolism
DX: D49.7 Neoplasm of unspecified behavior of endocrine glands and other parts of nervous system (principal)
CPT/HCPCS: 36415; 80053; 81599; 82024; 82533; 83001; 83002; 84146; 84270; 84305; 84403; 84439; 84443; 84481

== ENCOUNTER 2024-04-25 10:29 | Day surgery (SDC) | payer MEDICARE, OTHER ==
--- NOTE | 2024-04-25 10:20 | ANESTHESIA ---
Pre-Anesthesia VS, & Labs - Diagnosis screening - Procedure colonoscopy Height: 5 ft 10 in - NPO >8 hours Last Fluid Intake: am prep - Lab Results Lab results reviewed: Yes Home Medications and Allergies Aspirin [[place] Aspirin] 1 tab PO DAILY 09/13/23 Losartan [Cozaar] 100 mg PO DAILY 09/13/23 Allergies/Adverse Reactions: Allergies Allergy/AdvReac Type Severity Reaction Status Date / Time grass pollen-perennial rye, Allergy Mild Unknown Verified 04/25/24 11:14 standar [grass poll-perennial rye,std] Penicillins Allergy Unknown Verified 04/25/24 11:14 Anes History & Medical History - Anesthetic History Anesthesia Complications: reports: No previous complications Family history of Anesthesia Complications: Denies Family history of Malignant Hyperthermia: Denies - Medical History Cardiovascular: reports: Hypertension Pulmonary: reports: None Gastrointestinal: reports: None Urinary: reports: None Musculoskeletal: reports: None Endocrine/Autoimmune: reports: None Skin: reports: None Smoking Status: Never smoker Psychosocial: reports: No issues indicated History of Cancer?: No - Surgical History Orthopedic: reports: Other Exam General: Alert, Oriented x3, Cooperative Dental: WNL Mouth Openin Fingerbreadth Neck Mobility: Normal Mallampati classification: II Thyromental Distance: 4-6 cm Respiratory: Lungs clear, Normal breath sounds, No respiratory distress Cardiovascular: Regular rate Neurological: Normal speech Mental/Cognitive Status: Alert/Oriented X3, Normal for patient Cognitive Status: Within normal limits Plan Anesthesia Type: Total IV Consent for Procedure(s) Verified and Reviewed: Yes Code Status: Attempt Resuscitation ASA classification: 2-Mild systemic disease Is this case an emergency?: No
[~2024-04-25 10:29] MED LIST changes: -GADOTERATE MEGLUMINE 10 MMOL/20 ML VIAL ONE; +PROPOFOL 500 MG/50 ML 500 MG/50 ML VIAL ONE
[2024-04-25] MEDS: LACTATED RINGERS 1,000 ML IV ONE ×2 (10:38→12:09)
[2024-04-25] MEDS ORDERED: MIDAZOLAM 2 MG/2 ML VIAL ONE (11:03)
[2024-04-25] MEDS ORDERED: LIDOCAINE-MPF 2% 5 ML VIAL ONE (11:04)
--- NOTE | 2024-04-25 11:35 | HISTORY & PHYSICAL EXAMINATION ---
Chief Complaint - Chief Complaint Chief Complaint: here for colonoscopy History of Present Illness - History Obtained From Records Reviewed: yes History obtained from: pt Exam Limitations: none - History of Present Illness HPI Comment/Other: last colonoscopy over 10 years ago. here for screening. no gi problems History - Past Medical History Cardiovascular: reports: Hypertension, High cholesterol, Other Respiratory: reports: None Endocrine/Autoimmune: reports: None GI: reports: None : reports: None HEENT: reports: Other Psych: reports: None Musculoskeletal: reports: None Derm: reports: None MRSA Hx?: No - Past Surgical History Ortho: reports: Other Meds/Allgy - Home Medications Home Medications: Ambulatory Orders Medication Instructions Recorded Confirmed Aspirin [[place] Aspirin] 1 tab PO DAILY 09/13/23 04/25/24 Losartan [Cozaar] 100 mg PO DAILY 09/13/23 04/25/24 hydroCHLOROthiazide [Hydrodiuril] 25 mg PO DAILY #30 tablet 09/13/23 04/25/24 - Allergies Allergies/Adverse Reactions: Allergies Allergy/AdvReac Type Severity Reaction Status Date / Time grass pollen-perennial rye, Allergy Mild Unknown Verified 04/25/24 11:14 standar [grass poll-perennial rye,std] Penicillins Allergy Unknown Verified 04/25/24 11:14 Review of Systems - Other Findings Other Findings: 10 pt ros as above otherwise unremarkable Exam - Vital Signs Vital Signs: Vital Signs x48h Temp Pulse Resp BP Pulse Ox 04/25/24 10:43 36 C L 52 L 12 121/78 97 - Physical Exam General Appearance: positive: Alert Eyes Bilateral: positive: PERRL, EOMI ENT: positive: No signs of dehydration Neck: positive: No JVD Respiratory: positive: No respiratory distress Cardiovascular: positive: Regular rate & rhythm Abdomen: positive: No distention Neurologic/Psychiatric: positive: Oriented x3 Conclusion/Plan - Problem List (1) Colon cancer screening Conclusion/Plan: plan colonoscopy. parq held and consent obtained - Lab Results Lab results reviewed: Yes
[2024-04-25] MEDS ORDERED: GLYCOPYRROLATE 1 MG/5 ML VIAL ONE (11:36)
[2024-04-25 12:34] VITALS: O2SAT 95
[2024-04-25 12:45] VITALS: BP 104/72
--- NOTE | 2024-04-25 12:55 | ANESTHESIA POST OP EVALUATION ---
Anesthesia Post Eval - Post Anesthesia Eval Vitals: Last Vital Signs Temp 36.3 C L 04/25/24 12:09 Pulse 59 L 04/25/24 12:37 Resp 18 04/25/24 12:37 BP 104/72 04/25/24 12:37 Pulse Ox 95 04/25/24 12:37 O2 Flow Rate CV Function Including HR & BP: Stable Pain Control: Satisfactory Nausea & Vomiting: Negative Mental Status: Baseline Respiratory Status: Airway Patent Hydration Status: Satisfactory Anesthesia Complications: None
== END 2024-04-25 10:30 | disposition home or self-care (01) ==
LOC: SDS 10:29
PROVIDERS: ATTEND Surgery
PROC: 0DBH8ZZ Excision of Cecum, Via Natural or Artificial Opening Endoscopic (ICD-10-PCS; 2024-04-25)
PROC: 0DBK8ZZ Excision of Ascending Colon, Via Natural or Artificial Opening Endoscopic (ICD-10-PCS; principal; 2024-04-25 11:30)
DX: Z12.11 Encounter for screening for malignant neoplasm of colon (principal); D12.0 Benign neoplasm of cecum; D12.2 Benign neoplasm of ascending colon; K57.30 Diverticulosis of large intestine without perforation or abscess without bleeding
CPT/HCPCS: 45380; J7120